=== PATIENT | male | born 1955 | race Caucasian/White ===

== ENCOUNTER 2018-04-21 06:52 | Day surgery (SDC) | payer OTHER ==
[~2018-04-21] VITALS: Ht 172.7 cm; Wt 105.1 kg
[~2018-04-21 06:52] MED LIST: ATOR10TA PO; FERR325T18 PO; OMEP-110 PO; OMEP40CA6 PO; RIVA10TA PO; SIMV10TA3 PO; WARF-36 PO
[2018-04-21 07:26] VITALS: BP 141/90
[2018-04-21] MEDS ORDERED: EPINEPHRINE 1 MG/ML, 1ML ONE (07:26)
[2018-04-21] MEDS ORDERED: BUPIVACAINE/PF 0.25% ONE (07:26)
[2018-04-21] MEDS ORDERED: ONDANSETRON ODT 8 MG PO ONE (07:30)
[2018-04-21] MEDS ORDERED: GABAPENTIN 300 MG CAPSULE PO ONE (07:30)
[2018-04-21] MEDS ORDERED: ACETAMINOPHEN 500 MG TABLET PO ONE (07:30)
[2018-04-21] MEDS ORDERED: OxyconTIN ER 10 MG TAB.ER PO ONE (07:30)
[2018-04-21] MEDS ORDERED: PLEASE ENTER HEIGHT AND WEIGHT MC SCH (08:00)
[2018-04-21] MEDS ORDERED: LACTATED RINGERS 1,000 ML IV SCH (08:07)
[2018-04-21] MEDS ORDERED: FENTANYL PF 250 MCG/5ML ONE (08:23)
[2018-04-21] MEDS ORDERED: MIDAZOLAM 1 MG/ML, 2ML ONE (08:23)
[2018-04-21] MEDS ORDERED: KETOROLAC 30 MG/1 ML ONE (09:05)
[2018-04-21] MEDS ORDERED: MORPHINE SULFATE 4 MG/ML, 1ML IVPush PRN (09:30)
[2018-04-21] MEDS ORDERED: DIAZEPAM 5 MG/ML, 2ML IVPush PRN (09:30)
[2018-04-21] MEDS ORDERED: MIDAZOLAM 1 MG/ML, 2ML IV PRN (09:30)
[2018-04-21] MEDS ORDERED: FENTANYL PF 100 MCG/2ML IV PRN (09:30)
[2018-04-21] MEDS ORDERED: OXYcodone 5 MG/5 ML ORAL.SOL UDC PO PRN (09:30)
[2018-04-21] MEDS ORDERED: LABETALOL 5MG/ML, 20ML IV PRN (09:30)
[2018-04-21] MEDS ORDERED: PROMETHAZINE 25 MG/ML, 1ML IV PRN (09:30)
[2018-04-21] MEDS ORDERED: HYDROmorphone 1 MG/ML, 1ML IV PRN (09:30)
[2018-04-21] MEDS ORDERED: EPHEDRINE 50 MG/ML, 1ML IM PRN (09:30)
[2018-04-21] MEDS ORDERED: SCOPOLAMINE PATCH, 1.5MG PATCH.TD72 TD PRN (09:30)
[2018-04-21] MEDS ORDERED: hydrALAzine 20 MG/ML, 1ML IV PRN (09:30)
[2018-04-21] MEDS ORDERED: PROMETHAZINE 25 MG SUPP PR PRN (09:30)
[2018-04-21] MEDS ORDERED: ALBUTEROL/IPRATROPIUM 2.5MG/0.5MG, 3 ML NPPB PRN (09:30)
[2018-04-21] MEDS ORDERED: GLYCOPYRROLATE 0.2MG/1ML, 5ML ONE (09:32)
[2018-04-21] MEDS ORDERED: PROPOFOL 10 MG/ML, 20ML ONE (09:32)
[2018-04-21] MEDS ORDERED: LIDOCAINE GEL 2%, 5ML ONE (09:32)
[2018-04-21] MEDS ORDERED: ROCURONIUM 10MG/ML,5ML ONE (09:32)
[2018-04-21] MEDS ORDERED: ONDANSETRON 2MG/ML, 2ML ONE (09:32)
[2018-04-21] MEDS ORDERED: LIDOCAINE-MPF 2% ,5ML ONE (09:32)
[2018-04-21] MEDS ORDERED: SUCCINYLCHOLINE 20 MG/ML, 10ML ONE (09:32)
[2018-04-21] MEDS ORDERED: DEXAMETHASONE 4 MG/ML, 1ML ONE (09:32)
[2018-04-21] MEDS ORDERED: NEOSTIGMINE 1 MG/ML, 10ML ONE (09:32)
[2018-04-21] MEDS ORDERED: CEFAZOLIN 1,000 MG ONE (09:32)
[2018-04-21] MEDS ORDERED: MEPERIDINE/PF 25MG/0.5ML ONE (10:21)
[2018-04-21] MEDS ORDERED: OXYcodone 5 MG/5 ML ORAL.SOL UDC ONE (10:21)
[2018-04-21] MEDS: MEPERIDINE/PF 25MG/0.5ML IVPush PRN ×2 (10:23→10:31)
[2018-04-21] MEDS ORDERED: OXYcodone/APAP 5/325MG TABLET PO PRN (12:30)
[2018-04-21] MEDS ORDERED: OXYcodone/APAP 5/325MG TABLET ONE (12:30)
== END 2018-04-21 15:55 ==
LOC: OUT 06:52
PROVIDERS: ATTEND Surgery
DX: K43.0 Incisional hernia with obstruction, without gangrene (principal); I25.10 Atherosclerotic heart disease of native coronary artery without angina pectoris; E78.5 Hyperlipidemia, unspecified; K21.9 Gastro-esophageal reflux disease without esophagitis; D64.9 Anemia, unspecified; J44.9 Chronic obstructive pulmonary disease, unspecified; F17.210 Nicotine dependence, cigarettes, uncomplicated; Z95.5 Presence of coronary angioplasty implant and graft; Z86.718 Personal history of other venous thrombosis and embolism; Z87.19 Personal history of other diseases of the digestive system
CPT/HCPCS: 93005; J0171; J0690; J1100; J1885; J2175; J2250; J2405; J2704; J2710; J3010; J3490; Q0162; C1781; J0330; J7120

== ENCOUNTER → 2019-04-05 | Outpatient (CLI) | payer MEDICARE ==
[~2019-04-05] MED LIST changes: +MULT80TA PO; +OMNIPAQUE 350 MG/ML, 100ML BOTTLE ONE; +POLY17PO27 PO; -RIVA10TA PO; +RIVA10TA2 PO
== END | disposition home or self-care (01) ==
LOC: CFH 12:35
PROVIDERS: ATTEND Surgery Vascular Surgery
DX: I71.4 Abdominal aortic aneurysm, without rupture (principal); E78.00 Pure hypercholesterolemia, unspecified; I25.10 Atherosclerotic heart disease of native coronary artery without angina pectoris; I21.9 Acute myocardial infarction, unspecified
CPT/HCPCS: 74174; Q9967

== ENCOUNTER → 2019-04-07 | Outpatient (CLI) | payer MEDICARE ==
[~2019-04-07] MED LIST changes: -OMNIPAQUE 350 MG/ML, 100ML BOTTLE ONE
[2019-04-07 14:27] LABS: BASOPHILS # (AUTO) 0.03 x10^3/uL (0-0.1); BASOPHILS % (AUTO) 1 % (0-1); EOSINOPHILS # (AUTO) 0.14 x10^3/uL (0-0.4); EOSINOPHILS % (AUTO) 2 % (1-7); LYMPHOCYTES % (AUTO) 28 % (22-44); MD NO; MEAN CORPUSCULAR HEMOGLOBIN 31.9 pg (27.5-34.5); MEAN CORPUSCULAR HGB CONC 33.6 g/dL (33.2-36.2); MEAN CORPUSCULAR VOLUME 94.7 fL (81-97); MEAN PLATELET VOLUME 7.5 fL (7.4-10.4); MONOCYTES # (AUTO) 0.82 x10^3/uL (0.2-0.8); MONOCYTES % (AUTO) 13 % (2-9); NEUTROPHILS # (AUTO) 3.68 x10^3/uL (1.8-6.8); NEUTROPHILS % (AUTO) 57 % (42-75); PLATELET COUNT 213 x10^3/uL (130-400); RED BLOOD COUNT 5.44 x10^6/uL (4.38-5.82); RED CELL DISTRIBUTION WIDTH 14.1 % (9.4-14.8)
[2019-04-07 14:37] LABS: ALBUMIN 3.5 g/dL (3.4-5.0); ANION GAP 6 mmol/L (5-15); CALCIUM 8.5 mg/dL (8.5-10.1); CHLORIDE 109 mmol/L (98-107)
[2019-04-07 14:41] LABS: ALANINE AMINOTRANSFERASE 27 U/L (12-78); ALKALINE PHOSPHATASE 79 U/L (45-117); BILIRUBIN,TOTAL 0.8 mg/dL (0.2-1.0); CREATININE 0.82 mg/dL (0.7-1.3); TOTAL PROTEIN 7.1 g/dL (6.4-8.2)
== END | disposition home or self-care (01) ==
LOC: STAR 13:19
PROVIDERS: ATTEND Surgery Vascular Surgery
DX: Z01.818 Encounter for other preprocedural examination (principal); I71.4 Abdominal aortic aneurysm, without rupture
CPT/HCPCS: 36415; 80053; 85025; 93005

== ENCOUNTER 2019-04-13 09:48 | Inpatient (IN) | payer MEDICARE ==
[~2019-04-13] VITALS: Ht 172.7 cm; Wt 103.8 kg
[~2019-04-13 09:48] MED LIST changes: +BUPIVACAINE/PF-EPI 0.5% 1:200K ONE; +HEPARIN 1,000 UNITS/ML, 10ML ONE; +PROTAMINE SULFATE 10 MG/ML, 5ML ONE; +THROMBIN 5,000 UNIT VIAL TP ONE
[2019-04-13 10:21] VITALS: BP 145/94
[2019-04-13] MEDS ORDERED: GABAPENTIN 300 MG CAPSULE PO ONE (11:00)
[2019-04-13] MEDS ORDERED: OxyconTIN ER 10 MG TAB.ER PO ONE (11:00)
[2019-04-13] MEDS ORDERED: ACETAMINOPHEN 500 MG TABLET PO ONE (11:00)
[2019-04-13] MEDS ORDERED: TAMSULOSIN 0.4 MG CAP.ER.24H PO ONE (11:00)
[2019-04-13] MEDS ORDERED: DIAZEPAM 5 MG TABLET PO ONE (11:00)
[2019-04-13] MEDS ORDERED: DEXAMETHASONE 4 MG/ML, 5ML ONE (11:27)
[2019-04-13] MEDS ORDERED: HEPARIN 1,000 UNITS/ML, 10ML ONE (11:27)
[2019-04-13] MEDS ORDERED: GLYCOPYRROLATE 0.2MG/1ML, 5ML ONE (11:27)
[2019-04-13] MEDS ORDERED: ONDANSETRON 2MG/ML, 2ML ONE (11:27)
[2019-04-13] MEDS ORDERED: LIDOCAINE-MPF 2% ,5ML ONE (11:27)
[2019-04-13] MEDS ORDERED: PROPOFOL 10 MG/ML, 20ML ONE (11:27)
[2019-04-13] MEDS ORDERED: METOPROLOL 1 MG/ML, 5ML ONE (11:27)
[2019-04-13] MEDS ORDERED: PROTAMINE SULFATE 10 MG/ML, 5ML ONE (11:27)
[2019-04-13] MEDS ORDERED: NEOSTIGMINE 1 MG/ML, 10ML ONE (11:27)
[2019-04-13] MEDS ORDERED: CEFAZOLIN 1,000 MG ONE (11:27)
[2019-04-13] MEDS ORDERED: FENTANYL PF 250 MCG/5ML ONE ×2 (11:30)
[2019-04-13] MEDS ORDERED: HYDROmorphone 2 MG/ML, 1ML IVPush PRN (12:30)
[2019-04-13] MEDS ORDERED: MIDAZOLAM 1 MG/ML, 2ML IV PRN (12:30)
[2019-04-13] MEDS ORDERED: hydrALAzine 20 MG/ML, 1ML IV PRN (12:30)
[2019-04-13] MEDS ORDERED: MEPERIDINE/PF 25MG/0.5ML IVPush PRN (12:30)
[2019-04-13] MEDS ORDERED: ALBUTEROL/IPRATROPIUM 2.5MG/0.5MG, 3 ML NPPB PRN (12:30)
[2019-04-13] MEDS ORDERED: FENTANYL PF 100 MCG/2ML IV PRN (12:30)
[2019-04-13] MEDS ORDERED: PROMETHAZINE 25 MG/ML, 1ML IV PRN (12:30)
[2019-04-13] MEDS ORDERED: METOPROLOL 1 MG/ML, 5ML IV PRN (12:30)
[2019-04-13] MEDS ORDERED: ONDANSETRON 2MG/ML, 2ML IV PRN ×2 (12:30→16:30)
[2019-04-13] MEDS ORDERED: OXYcodone 5 MG/5 ML ORAL.SOL UDC PO PRN (12:30)
[2019-04-13] MEDS ORDERED: OXYcodone 5 MG/5 ML ORAL.SOL UDC ONE (14:50)
[2019-04-13] MEDS ORDERED: HYDROcodone/APAP 5/325 TABLET PO PRN (16:30)
[2019-04-13] MEDS ORDERED: morphine SULFATE 10 MG/ML, 1ML IV PRN (16:30)
[2019-04-13] MEDS: POTASSIUM CHLORIDE 20 MEQ in D5%-0.45% NACL 1,000 ML IV SCH (16:33)
[2019-04-13 20:21] VITALS: BP 132/76
[2019-04-14 00:03] VITALS: BP 144/89
[2019-04-14 03:40] VITALS: BP 120/73
[2019-04-14] MEDS: POTASSIUM CHLORIDE 20 MEQ in D5%-0.45% NACL 1,000 ML IV SCH (03:44)
[2019-04-14 05:20] LABS: BASOPHILS # (AUTO) 0.05 x10^3/uL (0-0.1); BASOPHILS % (AUTO) 0 % (0-1); EOSINOPHILS % (AUTO) 0 % (1-7); LYMPHOCYTES # (AUTO) 1.41 x10^3/uL (1-3.4); LYMPHOCYTES % (AUTO) 11 % (22-44); MD NO; MEAN CORPUSCULAR HEMOGLOBIN 32.2 pg (27.5-34.5); MEAN CORPUSCULAR HGB CONC 33.7 g/dL (33.2-36.2); MEAN CORPUSCULAR VOLUME 95.5 fL (81-97); MEAN PLATELET VOLUME 7.9 fL (7.4-10.4); MONOCYTES # (AUTO) 1.19 x10^3/uL (0.2-0.8); MONOCYTES % (AUTO) 9 % (2-9); NEUTROPHILS # (AUTO) 10.26 x10^3/uL (1.8-6.8); NEUTROPHILS % (AUTO) 79 % (42-75); PLATELET COUNT 187 x10^3/uL (130-400); RED BLOOD COUNT 4.98 x10^6/uL (4.38-5.82); RED CELL DISTRIBUTION WIDTH 13.9 % (9.4-14.8)
[2019-04-14 05:52] LABS: ANION GAP 6 mmol/L (5-15); CALCIUM 7.7 mg/dL (8.5-10.1); CHLORIDE 110 mmol/L (98-107); CREATININE 1.06 mg/dL (0.7-1.3)
[2019-04-14 08:36] VITALS: BP 118/75
[2019-04-14] MEDS ORDERED: HYDR-3240 PO (13:52)
== END 2019-04-14 14:35 | disposition home or self-care (01) | DRG 268 ==
LOC: ORIP 09:48 → EDSTATUS 11:30 → 4NOR 15:35 → DCLOUNGE 04-14 14:28
PROVIDERS: ADMIT Surgery Vascular Surgery; ATTEND Surgery Vascular Surgery
PROC: 04V03E6 (ICD-10-PCS; 2019-04-13)
PROC: 04LE3DZ Occlusion of Right Internal Iliac Artery with Intraluminal Device, Percutaneous Approach (ICD-10-PCS; 2019-04-13)
PROC: 03HY32Z Insertion of Monitoring Device into Upper Artery, Percutaneous Approach (ICD-10-PCS; principal; 2019-04-13 11:30)
DX: I71.4 Abdominal aortic aneurysm, without rupture (principal); R65.11 Systemic inflammatory response syndrome (SIRS) of non-infectious origin with acute organ dysfunction; K76.6 Portal hypertension; I10 Essential (primary) hypertension; K70.30 Alcoholic cirrhosis of liver without ascites; E66.9 Obesity, unspecified; I25.10 Atherosclerotic heart disease of native coronary artery without angina pectoris; Z95.5 Presence of coronary angioplasty implant and graft; Z86.718 Personal history of other venous thrombosis and embolism; Z87.891 Personal history of nicotine dependence
CPT/HCPCS: 34705; 36415; 80048; 85025; 86850; 86900; 86923; C1725; G0378; J0690; J1100; J1644; J2405; J2704; J2710; J2720; J3010; J3480; C1751; C1768; C1769; C1894

== ENCOUNTER 2019-06-28 10:36 | Outpatient (CLI) | payer MEDICARE | END 2019-06-28 23:59 | disposition home or self-care (01) | LOC: CFH 10:36 | PROVIDERS: ATTEND Surgery Vascular Surgery | DX: Z09 Encounter for follow-up examination after completed treatment for conditions other than malignant neoplasm (principal); I71.4 Abdominal aortic aneurysm, without rupture; I72.3 Aneurysm of iliac artery; I25.10 Atherosclerotic heart disease of native coronary artery without angina pectoris; E78.00 Pure hypercholesterolemia, unspecified; I25.2 Old myocardial infarction; Z72.89 Other problems related to lifestyle; Z95.828 Presence of other vascular implants and grafts; I74.5 Embolism and thrombosis of iliac artery | CPT/HCPCS: 74174; 82565; Q9967 ==

== ENCOUNTER → 2019-10-09 | Outpatient (CLI) | payer MEDICARE ==
[~2019-10-09] MED LIST changes: -BUPIVACAINE/PF-EPI 0.5% 1:200K ONE; -HEPARIN 1,000 UNITS/ML, 10ML ONE; +HYDR-3240 PO; +OMEP40CA42 PO; -OMEP40CA6 PO; -PROTAMINE SULFATE 10 MG/ML, 5ML ONE; -THROMBIN 5,000 UNIT VIAL TP ONE
== END | disposition home or self-care (01) ==
LOC: CFH 08:49
PROVIDERS: ATTEND Physician Assistant
DX: K74.69 Other cirrhosis of liver (principal); I10 Essential (primary) hypertension; E78.00 Pure hypercholesterolemia, unspecified; Z87.891 Personal history of nicotine dependence; Z95.828 Presence of other vascular implants and grafts
CPT/HCPCS: 76700

== ENCOUNTER → 2020-06-11 | Outpatient (CLI) | payer MEDICARE ==
[~2020-06-11] MED LIST changes: +OMNIPAQUE 350 MG/ML, 100ML BOTTLE ONE; +SIMV10TA18 PO; -SIMV10TA3 PO
== END | disposition home or self-care (01) ==
LOC: CFH 11:11
PROVIDERS: ATTEND Surgery Vascular Surgery
DX: K57.30 Diverticulosis of large intestine without perforation or abscess without bleeding (principal); K40.90 Unilateral inguinal hernia, without obstruction or gangrene, not specified as recurrent; I71.4 Abdominal aortic aneurysm, without rupture
CPT/HCPCS: 74174; 82565; Q9967

== ENCOUNTER 2020-08-02 18:16 | Inpatient (IN) | payer MEDICARE ==
[~2020-08-02] VITALS: Ht 172.7 cm; Wt 114.7 kg
[~2020-08-02 18:16] MED LIST changes: -OMNIPAQUE 350 MG/ML, 100ML BOTTLE ONE
[2020-08-02] MEDS ORDERED: SODIUM CHLORIDE FLUSH 10ML SYR IVF ONE (18:30)
[2020-08-02] MEDS ORDERED: PLEASE ENTER HEIGHT AND WEIGHT MC SCH (18:30)
[2020-08-02] MEDS ORDERED: PANTOPRAZOLE 80 MG in SODIUM CHLORIDE 0.9% 50 ML IVPB ONE (18:35)
[2020-08-02 18:52] LABS: BASOPHILS # (AUTO) 0.12 x10^3/uL (0-0.1); BASOPHILS % (AUTO) 2 % (0-1); EOSINOPHILS % (AUTO) 2 % (1-7); LYMPHOCYTES # (AUTO) 1.88 x10^3/uL (1-3.4); LYMPHOCYTES % (AUTO) 27 % (22-44); MD NO; MEAN CORPUSCULAR HEMOGLOBIN 25.6 pg (27.5-34.5); MEAN CORPUSCULAR HGB CONC 32.2 g/dL (33.2-36.2); MEAN CORPUSCULAR VOLUME 79.6 fL (81-97); MEAN PLATELET VOLUME 6.8 fL (7.4-10.4); MONOCYTES # (AUTO) 0.95 x10^3/uL (0.2-0.8); MONOCYTES % (AUTO) 14 % (2-9); NEUTROPHILS # (AUTO) 3.98 x10^3/uL (1.8-6.8); NEUTROPHILS % (AUTO) 57 % (42-75); PLATELET COUNT 297 x10^3/uL (130-400); RED BLOOD COUNT 3.14 x10^6/uL (4.38-5.82); RED CELL DISTRIBUTION WIDTH 17.7 % (9.4-14.8)
[2020-08-02 18:54] LABS: ALANINE AMINOTRANSFERASE 21 U/L (12-78); ALBUMIN 2.8 g/dL (3.4-5.0); ANION GAP 10 mmol/L (5-15); CALCIUM 7.7 mg/dL (8.5-10.1); CHLORIDE 109 mmol/L (98-107); CREATININE 0.92 mg/dL (0.7-1.3)
[2020-08-02 18:59] LABS: ALKALINE PHOSPHATASE 73 U/L (45-117); BILIRUBIN,TOTAL 0.4 mg/dL (0.2-1.0); TOTAL PROTEIN 5.9 g/dL (6.4-8.2); TROPONIN I < 0.015 ng/mL (0.000-0.045)
[2020-08-02 19:06] LABS: INTERNATIONAL NORMALIZED RATIO 0.98 (0.93-1.1); PROTHROMBIN TIME 10.1 Seconds (9.6-11.5)
--- NOTE | 2020-08-02 19:08 | NUR ---
PT STATES CP SINCE 0 TODAY, STATES PAIN RADIATES TO LT BACK. PT ALSO STATES DARK STOOLS. PT PLACED ON MONITORS, VSS. PT IV MEDICATIONS STARTED PER ORDERS. PT AWARE OF POC. CALL LIGHT IN REACH, CONT TO MONITOR.
[2020-08-02] MEDS: PANTOPRAZOLE 80 MG in SODIUM CHLORIDE 0.9% 100 ML IV SCH (19:16)
--- NOTE | 2020-08-02 20:19 | NUR ---
REPORT RECEIVED FROM FLOYD MCNAMARA. ASSUMING CARE AT THIS TIME.
--- NOTE | 2020-08-02 20:20 | NUR ---
REPORT TO ANDRY MCNAMARA.
[2020-08-02 20:28] VITALS: BP 126/67
[2020-08-02 20:43] VITALS: BP 100/55
--- NOTE | 2020-08-02 20:56 | NUR ---
REPORT GIVEN TO DARYL JIMENEZ
--- NOTE | 2020-08-02 20:56 | NUR ---
BLOOD STARTED AT 2030, VERIFIED WITH SECOND RN. PT VSS AFTER INITIAL 15 MINS.
[2020-08-02 20:58] VITALS: BP 105/64
[2020-08-02] MEDS ORDERED: ACETAMINOPHEN 325 MG TABLET PO ONE (21:00)
--- NOTE | 2020-08-02 21:14 | NUR ---
PT BEING TRANSFERRED TO FLOOR AT THIS TIME. VSS. BLOOD STILL INFUSING.
[2020-08-02 21:41] VITALS: BP 116/70
[2020-08-02 22:09] VITALS: BP 104/68
[2020-08-02 23:09] VITALS: BP 112/70
[2020-08-03 02:24] LABS: BASOPHILS # (AUTO) 0.12 x10^3/uL (0-0.1); BASOPHILS % (AUTO) 2 % (0-1); EOSINOPHILS # (AUTO) 0.11 x10^3/uL (0-0.4); EOSINOPHILS % (AUTO) 2 % (1-7); LYMPHOCYTES # (AUTO) 1.91 x10^3/uL (1-3.4); LYMPHOCYTES % (AUTO) 26 % (22-44); MD NO; MEAN CORPUSCULAR HGB CONC 31.9 g/dL (33.2-36.2); MEAN CORPUSCULAR VOLUME 81.3 fL (81-97); MEAN PLATELET VOLUME 6.5 fL (7.4-10.4); MONOCYTES # (AUTO) 0.96 x10^3/uL (0.2-0.8); MONOCYTES % (AUTO) 13 % (2-9); NEUTROPHILS # (AUTO) 4.31 x10^3/uL (1.8-6.8); NEUTROPHILS % (AUTO) 58 % (42-75); PLATELET COUNT 265 x10^3/uL (130-400); RED BLOOD COUNT 3.32 x10^6/uL (4.38-5.82); RED CELL DISTRIBUTION WIDTH 17.7 % (9.4-14.8)
[2020-08-03 02:41] LABS: ANION GAP 3 mmol/L (5-15); CALCIUM 7.4 mg/dL (8.5-10.1); CHLORIDE 113 mmol/L (98-107); CREATININE 0.96 mg/dL (0.7-1.3)
[2020-08-03 02:45] LABS: TROPONIN I < 0.015 ng/mL (0.000-0.045)
[2020-08-03 03:10] VITALS: BP 106/68
[2020-08-03] MEDS: PANTOPRAZOLE 80 MG in SODIUM CHLORIDE 0.9% 100 ML IV SCH (04:33)
[2020-08-03 05:53] VITALS: BP 105/69
[2020-08-03] MEDS: METOPROLOL SUCCINATE 100 MG TAB.ER.24H PO SCH (06:05)
[2020-08-03] MEDS ORDERED: PANTOPRAZOLE 80 MG in SODIUM CHLORIDE 0.9% 100 ML IV SCH (06:30)
[2020-08-03 06:48] VITALS: BP 117/76
[2020-08-03 08:15] LABS: BASOPHILS # (AUTO) 0.03 x10^3/uL (0-0.1); BASOPHILS % (AUTO) 0 % (0-1); EOSINOPHILS # (AUTO) 0.15 x10^3/uL (0-0.4); EOSINOPHILS % (AUTO) 2 % (1-7); LYMPHOCYTES # (AUTO) 1.79 x10^3/uL (1-3.4); LYMPHOCYTES % (AUTO) 26 % (22-44); MD NO; MEAN CORPUSCULAR HEMOGLOBIN 25.5 pg (27.5-34.5); MEAN CORPUSCULAR HGB CONC 31.3 g/dL (33.2-36.2); MEAN CORPUSCULAR VOLUME 81.6 fL (81-97); MEAN PLATELET VOLUME 6.6 fL (7.4-10.4); MONOCYTES # (AUTO) 0.98 x10^3/uL (0.2-0.8); MONOCYTES % (AUTO) 14 % (2-9); NEUTROPHILS # (AUTO) 4.07 x10^3/uL (1.8-6.8); NEUTROPHILS % (AUTO) 58 % (42-75); PLATELET COUNT 272 x10^3/uL (130-400); RED BLOOD COUNT 3.43 x10^6/uL (4.38-5.82); RED CELL DISTRIBUTION WIDTH 18.4 % (9.4-14.8)
[2020-08-03] MEDS ORDERED: PROPOFOL 10 MG/ML, 50ML ONE (09:32)
[2020-08-03] MEDS ORDERED: hydrALAzine 20 MG/ML, 1ML IV PRN ×2 (10:00)
[2020-08-03] MEDS ORDERED: PROMETHAZINE 25 MG/ML, 1ML IV PRN ×2 (10:00)
[2020-08-03] MEDS ORDERED: ACETAMINOPHEN 325 MG TABLET PO PRN ×2 (10:00)
[2020-08-03] MEDS ORDERED: KETOROLAC 30 MG/1 ML IV PRN (10:00)
[2020-08-03] MEDS ORDERED: FENTANYL PF 100 MCG/2ML IV PRN ×2 (10:00)
[2020-08-03] MEDS ORDERED: OXYcodone 5 MG/5 ML ORAL.SOL UDC PO PRN ×2 (10:00)
[2020-08-03] MEDS ORDERED: DIAZEPAM 5 MG/ML, 2ML IVPush PRN (10:00)
[2020-08-03] MEDS ORDERED: HYDROmorphone 2 MG/ML, 1ML IVPush PRN ×2 (10:00)
[2020-08-03] MEDS ORDERED: LABETALOL 5MG/ML, 20ML IV PRN ×2 (10:00)
[2020-08-03] MEDS ORDERED: ALBUTEROL SULFATE 2.5 MG/3 ML NPPB PRN ×2 (10:00)
[2020-08-03] MEDS ORDERED: MEPERIDINE/PF 25MG/0.5ML IVPush PRN (10:00)
[2020-08-03] MEDS ORDERED: ATOR40TA78 PO (11:53)
[2020-08-03] MEDS ORDERED: FURO-93 PO (11:53)
[2020-08-03] MEDS ORDERED: LISI-167 PO (11:53)
[2020-08-03] MEDS ORDERED: METO-95 PO ×2 (11:53→11:58)
[2020-08-03] MEDS: FUROSEMIDE 20 MG TABLET PO SCH (12:03)
[2020-08-03] MEDS: OMEPRAZOLE 20 MG CAPSULE.DR PO SCH (12:04)
[2020-08-03 13:40] VITALS: BP 148/82
[2020-08-03 18:46] VITALS: BP 105/64
[2020-08-03] MEDS ORDERED: ATORVASTATIN 80 MG TABLET PO SCH (21:00)
[2020-08-04 00:41] VITALS: BP 97/62
[2020-08-04 06:06] VITALS: BP 133/80
[2020-08-04] MEDS: OMEPRAZOLE 20 MG CAPSULE.DR PO SCH (06:11)
[2020-08-04] MEDS: METOPROLOL SUCCINATE 100 MG TAB.ER.24H PO SCH (06:11)
[2020-08-04 06:35] VITALS: BP 103/65
[2020-08-04 06:38] LABS: BASOPHILS # (AUTO) 0.03 x10^3/uL (0-0.1); BASOPHILS % (AUTO) 0 % (0-1); EOSINOPHILS # (AUTO) 0.13 x10^3/uL (0-0.4); EOSINOPHILS % (AUTO) 2 % (1-7); LYMPHOCYTES # (AUTO) 1.34 x10^3/uL (1-3.4); LYMPHOCYTES % (AUTO) 21 % (22-44); MD NO; MEAN CORPUSCULAR HEMOGLOBIN 25.5 pg (27.5-34.5); MEAN CORPUSCULAR HGB CONC 31.7 g/dL (33.2-36.2); MEAN CORPUSCULAR VOLUME 80.4 fL (81-97); MEAN PLATELET VOLUME 6.6 fL (7.4-10.4); MONOCYTES # (AUTO) 0.86 x10^3/uL (0.2-0.8); MONOCYTES % (AUTO) 13 % (2-9); NEUTROPHILS # (AUTO) 4.12 x10^3/uL (1.8-6.8); NEUTROPHILS % (AUTO) 64 % (42-75); PLATELET COUNT 271 x10^3/uL (130-400); RED BLOOD COUNT 3.43 x10^6/uL (4.38-5.82)
[2020-08-04 06:44] LABS: ANION GAP 4 mmol/L (5-15); CALCIUM 8.1 mg/dL (8.5-10.1); CHLORIDE 111 mmol/L (98-107)
[2020-08-04] MEDS: FUROSEMIDE 20 MG TABLET PO SCH (08:20)
[2020-08-04] MEDS ORDERED: OMEP-110 PO (11:45)
== END 2020-08-04 13:15 | disposition home or self-care (01) | DRG 379 ==
LOC: ED 18:56 → EDIP 19:56 → 4WST 21:18 → DCLOUNGE 08-04 13:07
PROVIDERS: ADMIT Family Medicine; ATTEND Family Medicine
PROC: 30233N1 Transfusion of Nonautologous Red Blood Cells into Peripheral Vein, Percutaneous Approach (ICD-10-PCS; principal; 2020-08-02)
PROC: 0W3P8ZZ Control Bleeding in Gastrointestinal Tract, Via Natural or Artificial Opening Endoscopic (ICD-10-PCS; 2020-08-03)
DX: K31.811 Angiodysplasia of stomach and duodenum with bleeding (principal); D50.9 Iron deficiency anemia, unspecified; I10 Essential (primary) hypertension; E78.5 Hyperlipidemia, unspecified; I25.10 Atherosclerotic heart disease of native coronary artery without angina pectoris; Z66 Do not resuscitate; F17.210 Nicotine dependence, cigarettes, uncomplicated; Z80.8 Family history of malignant neoplasm of other organs or systems; Z80.0 Family history of malignant neoplasm of digestive organs; Z82.49 Family history of ischemic heart disease and other diseases of the circulatory system; Z83.3 Family history of diabetes mellitus; Z86.718 Personal history of other venous thrombosis and embolism; Z95.5 Presence of coronary angioplasty implant and graft; Z20.828 Contact with and (suspected) exposure to other viral communicable diseases
CPT/HCPCS: 36415; 36430; 71045; 80048; 80053; 80307; 83690; 83880; 84484; 85025; 85610; 86850; 86900; 86923; 87635; 93005; 96365; 96366; 99285; G0378; J2704; C9113; P9016

== ENCOUNTER → 2020-08-13 | Outpatient (CLI) | payer MEDICARE ==
[~2020-08-13] MED LIST changes: +ATOR40TA78 PO; +FURO-93 PO; +LISI-167 PO; +METO-95 PO
[2020-08-13 12:37] LABS: MEAN CORPUSCULAR HEMOGLOBIN 24.1 pg (27.5-34.5); MEAN CORPUSCULAR HGB CONC 31.2 g/dL (33.2-36.2); MEAN CORPUSCULAR VOLUME 77.2 fL (81-97); MEAN PLATELET VOLUME 7.1 fL (7.4-10.4); PLATELET COUNT 278 x10^3/uL (130-400); RED BLOOD COUNT 3.18 x10^6/uL (4.38-5.82)
[2020-08-13 12:57] LABS: CHLORIDE 109 mmol/L (98-107)
[2020-08-13 13:03] LABS: ANION GAP 8 mmol/L (5-15); CALCIUM 8.3 mg/dL (8.5-10.1); CREATININE 1.03 mg/dL (0.7-1.3)
== END | disposition home or self-care (01) ==
LOC: CFH 11:19
PROVIDERS: ATTEND Internal Medicine Cardiovascular Disease
DX: K92.2 Gastrointestinal hemorrhage, unspecified (principal)
CPT/HCPCS: 36415; 80048; 85027

== ENCOUNTER 2020-08-27 11:06 | Emergency (ER) | payer MEDICARE ==
[~2020-08-27] VITALS: Ht 172.7 cm; Wt 106.4 kg
--- NOTE | 2020-08-27 11:43 | NUR ---
THIS IS A 65 YR OLD MALE WHO STATES HE WAS RECENTLY ADMITTED TO THE HOSPITAL FOR BLEEDING. UPON ENTERING THE ROOM PT EXPRESSES TO THIS RN THAT HE IS VERY ANGRY. HE STATES " I AM VERY UPSET, YOU PEOPLE WERE SUPPOSED TO FIX MY BLLEDING. AND NOW THE DOCTORS TELL ME MY BLOOD COUNTS ARE LOW. MY MOTHER IS 90 YRS OLD AND SHE SHOULDN'T HAVE TO BE HERE." PT REASSURED THAT THIS RN HAD NOTHING TO DO WITH WHAT PREVIOUSLY HAPPENED AND IS HERE TO ADDRESS HIS NEEDS IN REGARDS TO THE SITUATION TODAY. PT PLACED ON NIBP AND O2 MONITORING.
--- NOTE | 2020-08-27 12:01 | NUR ---
Assumed care from Clayton MCNAMARA
[2020-08-27 12:43] LABS: BASOPHILS % (AUTO) 2 % (0-1); EOSINOPHILS % (AUTO) 1 % (1-7); LYMPHOCYTES % (AUTO) 29 % (22-44); MD NO; MEAN CORPUSCULAR HEMOGLOBIN 21.8 pg (27.5-34.5); MEAN CORPUSCULAR HGB CONC 30.6 g/dL (33.2-36.2); MEAN PLATELET VOLUME 6.9 fL (7.4-10.4); MONOCYTES % (AUTO) 19 % (2-9); NEUTROPHILS % (AUTO) 50 % (42-75); PLATELET COUNT 294 x10^3/uL (130-400); RED BLOOD COUNT 3.78 x10^6/uL (4.38-5.82); RED CELL DISTRIBUTION WIDTH 22.5 % (9.4-14.8)
[2020-08-27 12:54] LABS: % IRON SATURATION 3 % (20-55); ALBUMIN 3.2 g/dL (3.4-5.0); ANION GAP 5 mmol/L (5-15); CALCIUM 8.2 mg/dL (8.5-10.1); CHLORIDE 106 mmol/L (98-107); CREATININE 1.02 mg/dL (0.7-1.3); IRON LEVEL 16 mcg/dL (65-175); TOTAL IRON BINDING CAPACITY 532 mcg/dL (250-450)
--- NOTE | 2020-08-27 12:54 | NUR ---
Helped patient to restroom and then assited back to bed. Pt happy and in a joking manenr. Informed pt I would come back to the room once we knew more about the POC. Pt informed of how to use call light and within reach. UA sample provided.
--- NOTE | 2020-08-27 13:00 | NUR ---
Chart up for recheck.
[2020-08-27] MEDS ORDERED: IRON SUCROSE COMPLEX 100MG/5ML IV STA (13:31)
[2020-08-27 14:18] VITALS: BP 119/59
--- NOTE | 2020-08-27 14:19 | NUR ---
IV IREON SUCROSE SLOW PUSH (1ML IV IRON SUCROSE EVERY 1 MINUTE +10ML OF NS IN BETWEEN EACH ML)
--- NOTE | 2020-08-27 15:01 | NUR ---
Patient/Caregiver given discharge instructions and they have confirmed that they understand the instructions. Patient ambulatory with steady gait.
== END 2020-08-27 15:03 | disposition home or self-care (01) ==
LOC: ED 13:17
DX: D50.9 Iron deficiency anemia, unspecified (principal); I25.10 Atherosclerotic heart disease of native coronary artery without angina pectoris; E78.5 Hyperlipidemia, unspecified; E78.00 Pure hypercholesterolemia, unspecified; Z86.718 Personal history of other venous thrombosis and embolism
CPT/HCPCS: 36415; 80048; 82040; 83540; 83550; 85025; 96365; 99284; J1756

== ENCOUNTER → 2020-11-19 | Outpatient (CLI) | payer MEDICARE ==
[~2020-11-19] MED LIST changes: +CLOP75TA PO; +FERR325T5 PO; +REGADENOSON 0.4 MG/5 ML SYRINGE ONE
== END | disposition home or self-care (01) ==
LOC: CFH 08:04
PROVIDERS: ATTEND Internal Medicine Cardiovascular Disease
DX: I10 Essential (primary) hypertension (principal); I25.10 Atherosclerotic heart disease of native coronary artery without angina pectoris; Z98.61 Coronary angioplasty status
CPT/HCPCS: 78452; 93017; A9502; J2785

== ENCOUNTER → 2021-04-29 | Outpatient (CLI) | payer MEDICARE ==
[~2021-04-29] MED LIST changes: +HYDR-2214 PO; -HYDR-3240 PO; -OMEP40CA42 PO; +OMEP40CA8 PO; -REGADENOSON 0.4 MG/5 ML SYRINGE ONE
== END | disposition home or self-care (01) ==
LOC: CVU 12:15
PROVIDERS: ATTEND Internal Medicine Cardiovascular Disease
DX: I08.3 Combined rheumatic disorders of mitral, aortic and tricuspid valves (principal); I25.10 Atherosclerotic heart disease of native coronary artery without angina pectoris; I11.9 Hypertensive heart disease without heart failure; E78.5 Hyperlipidemia, unspecified; R60.0 Localized edema; F17.200 Nicotine dependence, unspecified, uncomplicated; F10.20 Alcohol dependence, uncomplicated
CPT/HCPCS: 93306

== ENCOUNTER 2021-05-13 10:53 | Outpatient (CLI) | payer MEDICARE | END 2021-05-13 23:59 | disposition home or self-care (01) | LOC: CFH 10:53 | PROVIDERS: ATTEND Nurse Practitioner Family | DX: J90 Pleural effusion, not elsewhere classified (principal); R91.8 Other nonspecific abnormal finding of lung field; J98.4 Other disorders of lung | CPT/HCPCS: 71250 ==

== ENCOUNTER 2021-05-29 10:27 | Day surgery (SDC) | payer MEDICARE ==
[~2021-05-29] VITALS: Ht 172.7 cm; Wt 104.5 kg
[2021-05-29] MEDS ORDERED: SODIUM CHLORIDE 0.9% 1,000 ML IV ONE (11:00)
[2021-05-29] MEDS ORDERED: GLYC10.7 INH (11:03)
[2021-05-29] MEDS ORDERED: POTA20TA6 PO (11:03)
[2021-05-29 11:14] VITALS: BP 136/77
[2021-05-29] MEDS ORDERED: PROPOFOL 10 MG/ML, 20ML ONE (12:00)
== END 2021-05-29 12:42 | disposition home or self-care (01) ==
LOC: CACL 10:27
PROVIDERS: ATTEND Internal Medicine Cardiovascular Disease
DX: I34.0 Nonrheumatic mitral (valve) insufficiency (principal); I25.10 Atherosclerotic heart disease of native coronary artery without angina pectoris; I10 Essential (primary) hypertension; E78.5 Hyperlipidemia, unspecified; E66.3 Overweight; F17.210 Nicotine dependence, cigarettes, uncomplicated; Z68.37 Body mass index [BMI] 37.0-37.9, adult; Z20.822 Contact with and (suspected) exposure to COVID-19; Z79.02 Long term (current) use of antithrombotics/antiplatelets; Z79.82 Long term (current) use of aspirin; Z79.899 Other long term (current) drug therapy; Z95.5 Presence of coronary angioplasty implant and graft; Z83.3 Family history of diabetes mellitus
CPT/HCPCS: 87635; 93312; 93325; J2704

== ENCOUNTER 2021-07-09 09:32 | Day surgery (SDC) | payer MEDICARE ==
[~2021-07-09] VITALS: Ht 172.7 cm; Wt 102.3 kg
[~2021-07-09 09:32] MED LIST changes: +GLYC10.7 INH; +POTA20TA6 PO
[2021-07-09] MEDS ORDERED: SODIUM CHLORIDE 0.9% 1,000 ML IV SCH ×2 (10:00→15:00)
[2021-07-09] MEDS ORDERED: ASPI81TA45 PO (10:13)
[2021-07-09 10:15] VITALS: BP 123/76
[2021-07-09] MEDS ORDERED: CLOPIDOGREL 75 MG TABLET ONE (10:25)
[2021-07-09] MEDS ORDERED: CLOPIDOGREL 75 MG TABLET PO ONE (10:30)
[2021-07-09 10:51] LABS: ANION GAP 8 mmol/L (5-15); CALCIUM 8.3 mg/dL (8.5-10.1); CHLORIDE 106 mmol/L (98-107); CREATININE 0.79 mg/dL (0.7-1.3)
[2021-07-09 11:14] LABS: BASOPHILS % (AUTO) 1 % (0-1); EOSINOPHILS % (AUTO) 3 % (1-7); LYMPHOCYTES % (AUTO) 21 % (22-44); MEAN CORPUSCULAR HEMOGLOBIN 33.7 pg (27.5-34.5); MEAN CORPUSCULAR HGB CONC 34.2 g/dL (33.2-36.2); MEAN PLATELET VOLUME 7.3 fL (7.4-10.4); MONOCYTES % (AUTO) 16 % (2-9); NEUTROPHILS % (AUTO) 59 % (42-75); PLATELET COUNT 169 x10^3/uL (130-400); RED BLOOD COUNT 4.26 x10^6/uL (4.38-5.82); RED CELL DISTRIBUTION WIDTH 16.5 % (9.4-14.8)
[2021-07-09] MEDS ORDERED: VERAPAMIL 2.5 MG/ML, 2ML ONE (11:30)
[2021-07-09] MEDS ORDERED: LIDOCAINE-MPF 1%, 5ML ONE (11:30)
[2021-07-09] MEDS ORDERED: MIDAZOLAM 1 MG/ML, 5ML ONE (11:30)
[2021-07-09] MEDS ORDERED: FENTANYL PF 100 MCG/2ML ONE (11:30)
[2021-07-09] MEDS ORDERED: HEPARIN 1,000 UNITS/ML, 10ML ONE (11:31)
== END 2021-07-09 17:43 | disposition home or self-care (01) ==
LOC: CACL 09:32
PROVIDERS: ATTEND Internal Medicine Cardiovascular Disease
DX: R07.9 Chest pain, unspecified (principal); T82.855A Stenosis of coronary artery stent, initial encounter; I25.10 Atherosclerotic heart disease of native coronary artery without angina pectoris; I35.0 Nonrheumatic aortic (valve) stenosis; I34.0 Nonrheumatic mitral (valve) insufficiency; I10 Essential (primary) hypertension; E78.5 Hyperlipidemia, unspecified; I25.2 Old myocardial infarction; F17.210 Nicotine dependence, cigarettes, uncomplicated; Z79.82 Long term (current) use of aspirin; Z79.899 Other long term (current) drug therapy; Z95.5 Presence of coronary angioplasty implant and graft; Z83.3 Family history of diabetes mellitus; Y83.8 Other surgical procedures as the cause of abnormal reaction of the patient, or of later complication, without mention of misadventure at the time of the procedure
CPT/HCPCS: 36415; 80048; 85025; 92920; 93460; 99156; 99157; C1725; C1769; C1887; C1894; J0583; J1200; J1644; J2250; J3010; Q9967

== ENCOUNTER 2021-08-05 07:34 | Inpatient (IN) | payer MEDICARE ==
[~2021-08-05] VITALS: Ht 172.7 cm; Wt 105.2 kg
[~2021-08-05 07:34] MED LIST changes: +ASPI81TA45 PO; +POTA-143 PO; -POTA20TA6 PO
[2021-08-05] MEDS ORDERED: VITA1CAP PO (08:21)
[2021-08-05] MEDS ORDERED: GINK30CA2 PO (08:21)
[2021-08-05] MEDS ORDERED: VIT1CAPS11 PO (08:21)
[2021-08-05] MEDS ORDERED: ONDANSETRON 2MG/ML, 2ML IV PRN ×2 (08:30→12:00)
[2021-08-05] MEDS ORDERED: SODIUM CHLORIDE 0.9% 1,000ML IV SCH (08:30)
[2021-08-05 08:47] LABS: BASOPHILS % (AUTO) 1 % (0-1); EOSINOPHILS % (AUTO) 2 % (1-7); LYMPHOCYTES % (AUTO) 18 % (22-44); MEAN CORPUSCULAR HEMOGLOBIN 35.2 pg (27.5-34.5); MEAN CORPUSCULAR HGB CONC 34.3 g/dL (33.2-36.2); MEAN PLATELET VOLUME 7.2 fL (7.4-10.4); MONOCYTES % (AUTO) 15 % (2-9); NEUTROPHILS % (AUTO) 64 % (42-75); PLATELET COUNT 209 x10^3/uL (130-400); RED BLOOD COUNT 3.44 x10^6/uL (4.38-5.82); RED CELL DISTRIBUTION WIDTH 16.4 % (9.4-14.8)
[2021-08-05 08:54] LABS: PROTHROMBIN TIME 10.7 Seconds (9.6-11.5)
[2021-08-05 08:56] LABS: ANION GAP 6 mmol/L (5-15); CALCIUM 8.2 mg/dL (8.5-10.1); CHLORIDE 105 mmol/L (98-107); CREATININE 0.84 mg/dL (0.7-1.3)
[2021-08-05] MEDS ORDERED: FENTANYL PF 250 MCG/5ML ONE (09:44)
[2021-08-05] MEDS ORDERED: DEXAMETHASONE 4 MG/ML, 1ML ONE ×2 (09:46→09:50)
[2021-08-05] MEDS ORDERED: CEFAZOLIN 1,000 MG ONE ×2 (09:49→09:50)
[2021-08-05] MEDS ORDERED: HEPARIN 1,000 UNITS/ML, 10ML ONE ×2 (09:50)
[2021-08-05] MEDS ORDERED: PROTAMINE SULFATE 10 MG/ML, 5ML ONE (11:11)
[2021-08-05] MEDS ORDERED: MAALOX/HYOSCYAMINE/LIDOCAINE 45 ML BTL PO PRN (12:00)
[2021-08-05] MEDS ORDERED: hydrALAzine 20 MG/ML, 1ML IVPush PRN (12:00)
[2021-08-05] MEDS ORDERED: ACETAMINOPHEN 325 MG TABLET PO PRN (12:00)
[2021-08-05] MEDS ORDERED: LABETALOL 5MG/ML, 20ML IVPush PRN (12:00)
[2021-08-05] MEDS: CLOPIDOGREL 75 MG TABLET PO SCH (12:00)
[2021-08-05] MEDS ORDERED: SODIUM CHLORIDE 0.9% 1,000 ML IV SCH (12:00)
[2021-08-05] MEDS ORDERED: HYDROcodone/APAP 5/325 TABLET PO PRN (12:00)
[2021-08-05] MEDS: FUROSEMIDE 40 MG TABLET PO SCH ×2 (13:20→19:58)
[2021-08-05] MEDS: ASPIRIN 81 MG TABLET EC PO SCH (13:20)
[2021-08-05] MEDS: POTASSIUM CHLORIDE 20 MEQ TAB.ER.PRT PO SCH (13:20)
[2021-08-05 13:45] VITALS: BP 114/74
[2021-08-05 14:07] VITALS: BP 114/74
[2021-08-05] MEDS ORDERED: LORazepam 0.5MG TABLET PO PRN (18:30)
[2021-08-05] MEDS ORDERED: LORazepam 1MG TABLET PO PRN ×4 (18:30)
[2021-08-05] MEDS ORDERED: LORazepam 2 MG/ML, 1ML IV PRN ×5 (18:30)
[2021-08-05 19:12] VITALS: BP 114/78
[2021-08-05] MEDS ORDERED: ATORVASTATIN 40 MG TABLET PO SCH (21:00)
[2021-08-05 21:45] VITALS: BP 118/78
[2021-08-06 00:07] VITALS: BP 119/77
[2021-08-06 02:00] VITALS: BP 123/80
[2021-08-06] MEDS ORDERED: OMEPRAZOLE 20 MG CAPSULE.DR PO SCH (06:00)
[2021-08-06 06:17] LABS: ANION GAP 8 mmol/L (5-15); CHLORIDE 104 mmol/L (98-107); CREATININE 0.75 mg/dL (0.7-1.3)
[2021-08-06 06:52] VITALS: BP 134/84
[2021-08-06 07:17] VITALS: BP 132/76
[2021-08-06] MEDS ORDERED: POLYETHYLENE GLYCOL 17 GM PACKET PO SCH (09:00)
[2021-08-06] MEDS ORDERED: LISINOPRIL 10 MG TABLET PO SCH (09:00)
[2021-08-06] MEDS ORDERED: METOPROLOL SUCCINATE 100 MG TAB.ER.24H PO SCH (09:00)
[2021-08-06] MEDS: CLOPIDOGREL 75 MG TABLET PO SCH (09:04)
[2021-08-06] MEDS: POTASSIUM CHLORIDE 20 MEQ TAB.ER.PRT PO SCH (09:04)
[2021-08-06] MEDS: ASPIRIN 81 MG TABLET EC PO SCH (09:04)
[2021-08-06] MEDS: FUROSEMIDE 40 MG TABLET PO SCH (09:05)
[2021-08-06] MEDS ORDERED: THIAMINE 100MG TABLET PO SCH (11:30)
[2021-08-06] MEDS ORDERED: DOCUSATE CALCIUM 240 MG CAPSULE PO SCH (11:30)
[2021-08-06] MEDS ORDERED: THIA100T67 PO (11:54)
== END 2021-08-06 13:35 | disposition home or self-care (01) | DRG 267 ==
LOC: CACL 07:34 → ORIP 08:06 → 5SO 13:40
PROVIDERS: ADMIT Internal Medicine Cardiovascular Disease; ATTEND Internal Medicine Cardiovascular Disease
PROC: B24BZZ4 Ultrasonography of Heart with Aorta, Transesophageal (ICD-10-PCS; 2021-08-05)
PROC: 02UG3JZ Supplement Mitral Valve with Synthetic Substitute, Percutaneous Approach (ICD-10-PCS; principal; 2021-08-05 10:30)
DX: I34.0 Nonrheumatic mitral (valve) insufficiency (principal); Z00.6 Encounter for examination for normal comparison and control in clinical research program; I50.22 Chronic systolic (congestive) heart failure; K92.2 Gastrointestinal hemorrhage, unspecified; D53.9 Nutritional anemia, unspecified; E66.9 Obesity, unspecified; E78.5 Hyperlipidemia, unspecified; Z20.822 Contact with and (suspected) exposure to COVID-19; I11.0 Hypertensive heart disease with heart failure; I25.10 Atherosclerotic heart disease of native coronary artery without angina pectoris; I73.9 Peripheral vascular disease, unspecified; K59.00 Constipation, unspecified; Z68.35 Body mass index [BMI] 35.0-35.9, adult
CPT/HCPCS: 36415; 80048; 83880; 85025; 85347; 85610; 86850; 86900; 87635; 93005; 93306; 93355; G0378; J0690; J1100; J1644; J2720; J3010

== ENCOUNTER → 2021-08-20 | Outpatient (CLI) | payer MEDICARE | END | disposition home or self-care (01) | LOC: CFH 12:59 | PROVIDERS: ATTEND Surgery Vascular Surgery | DX: I71.4 Abdominal aortic aneurysm, without rupture (principal); I72.3 Aneurysm of iliac artery | CPT/HCPCS: 74174; Q9967 ==